=== PATIENT | male | born 1965 | race African-American/Black ===

== ENCOUNTER 2019-09-06 10:13 | Emergency (ER) | payer SELFPAY ==
[2019-09-06] MEDS ORDERED: KETOROLAC TROMETHAMINE INJ/PF 30 MG/1 ML SDV IM ONE (10:29)
[2019-09-06] MEDS ORDERED: DEXAMETHASONE SOD PHOS INJ 10 MG/1 ML VIAL IM ONE (10:29)
--- NOTE | 2019-09-06 10:32 | ER Document Report ---
ED Medical Screen (RME) - General Chief Complaint: Facial Swelling Stated Complaint: FACIAL SWELLING Time Seen by Provider: 09/06/19 10:28 Mode of Arrival: Ambulatory Information source: Patient Notes: 53-year-old male presents to ED for complaint of facial swelling to the left side of his face. He states he started with dental pain on Monday and his face started swelling yesterday and got much worse by today. He states ibuprofen upsets his stomach so he does not like ibuprofen he is not allergic to it. He states he has no medical history. He states he does smoke cigars. States he drinks about 4 beers a day smokes marijuana. I have greeted and performed a rapid initial assessment of this patient. A comprehensive ED assessment and evaluation of the patient, analysis of test results and completion of medical decision making process will be conducted by an additional ED providers. - Related Data Allergies/Adverse Reactions: ibuprofen Adverse Reaction (Verified 09/06/19 10:26) Past Medical History - Social History Frequency of alcohol use: Social Drug Abuse: None Pulmonary Medical History: Reports: Hx Tuberculosis - LATENT, ON MED 6 MONTHS. Renal/ Medical History: Reports: Hx Kidney Stones GI Medical History: Reports: Hx Hiatal Hernia Past Surgical History: Reports: Hx Abdominal Surgery - hernia, Hx Herniorrhaphy, Hx Orthopedic Surgery - broken hand - Immunizations Hx Diphtheria, Pertussis, Tetanus Vaccination: Yes Physical Exam - Vital signs Vitals: Temp Pulse Resp BP Pulse Ox 98.3 F 99 20 142/97 H 97 09/06/19 10:17 09/06/19 10:17 09/06/19 10:17 09/06/19 10:17 09/06/19 10:17 Course - Vital Signs Vital signs: Temp Pulse Resp BP Pulse Ox 98.3 F 99 20 142/97 H 97 09/06/19 10:17 09/06/19 10:17 09/06/19 10:17 09/06/19 10:17 09/06/19 10:17
[2019-09-06 11:54] LABS: ABSOLUTE BASOPHILS # (AUTO) 0.1 10^3/uL (0.0-0.2); ABSOLUTE EOSINOPHILS # (AUTO) 0.1 10^3/uL (0.0-0.6); ABSOLUTE LYMPHOCYTES (AUTO) 1.5 10^3/uL (0.5-4.7); ABSOLUTE MONOCYTES (AUTO) 1.1 10^3/uL (0.1-1.4); ABSOLUTE NEUT (AUTO) 11.8 10^3/uL (1.7-8.2); BASOPHILS % (AUTO) 0.6 % (0-2); HEMATOCRIT 45.4 % (37.9-51.0); HEMOGLOBIN 15.3 g/dL (13.5-17.0); MEAN CORPUSCULAR HEMOGLOBIN 32.2 pg (27.0-33.4); MEAN CORPUSCULAR HGB CONC 33.7 g/dL (32.0-36.0); MEAN CORPUSCULAR VOLUME 95 fl (80-97); MONOCYTES % (AUTO) 7.6 % (3-13); PLATELET COUNT 207 10^3/uL (150-450); RED BLOOD COUNT 4.75 10^6/uL (4.35-5.55); RED CELL DISTRIBUTION WIDTH 13.3 % (11.5-14.0); SEGMENTED NEUTROPHILS % (AUTO) 80.8 % (42-78); TOTAL CELLS COUNTED % (AUTO) 100 %; WHITE BLOOD COUNT 14.6 10^3/uL (4.0-10.5)
[2019-09-06 12:09] LABS: ALBUMIN 4.2 g/dL (3.5-5.0); ALKALINE PHOSPHATASE 85 U/L (38-126); ANION GAP 6 (5-19); ASPARTATE AMINO TRANSFERASE 22 U/L (17-59); BILIRUBIN,DIRECT 0.1 mg/dL (0.0-0.4); BILIRUBIN,TOTAL 0.7 mg/dL (0.2-1.3); BLOOD UREA NITROGEN 11 mg/dL (7-20); CALCIUM 9.8 mg/dL (8.4-10.2); CARBON DIOXIDE 26 mmol/L (22-30); CHLORIDE 108 mmol/L (98-107); GLUCOSE 89 mg/dL (75-110); POTASSIUM 4.3 mmol/L (3.6-5.0); TOTAL PROTEIN 7.1 g/dL (6.3-8.2)
[2019-09-06] MEDS ORDERED: CLINDAMYCIN 900 MG/D5W RTU 900 MG/50 ML RTUPB IV ONE (13:23)
--- NOTE | 2019-09-06 13:23 | ER Document Report ---
ED General - General Chief Complaint: Facial Swelling Stated Complaint: FACIAL SWELLING Time Seen by Provider: 09/06/19 10:28 Primary Care Provider: [facility] [Provider Group] - Follow up in 1 week Mode of Arrival: Ambulatory - [facility] Notes: 53-year-old male to the emergency department with complaints of left-sided facial swelling that has been getting worse for the past 2 days. He states that he first noticed some heat and face pressure about 3 days ago. He states he awoke yesterday with some mild facial swelling and then today he awoke with more. Denies any drooling, fevers, chills, neck pain, headache, chest pain, shortness of breath, abdominal pain, nausea, vomiting, diarrhea. He smokes. He has not seen a dentist in a long time. - Related Data Allergies/Adverse Reactions: ibuprofen Adverse Reaction (Verified 09/06/19 10:26) Past Medical History - General Information source: Patient - Social History Smoking Status: Current Every Day Smoker Frequency of alcohol use: Social Drug Abuse: None Family History: Reviewed & Not Pertinent Patient has suicidal ideation: No Patient has homicidal ideation: No Pulmonary Medical History: Reports: Hx Asthma, Hx Tuberculosis - LATENT, ON MED 6 MONTHS. Renal/ Medical History: Reports: Hx Kidney Stones GI Medical History: Reports: Hx Hiatal Hernia Past Surgical History: Reports: Hx Abdominal Surgery - hernia, Hx Herniorrhaphy, Hx Orthopedic Surgery - broken hand - Immunizations Hx Diphtheria, Pertussis, Tetanus Vaccination: Yes Review of Systems - Review of Systems Constitutional: denies: Chills, Fever EENT: See HPI, Dental problem, Other - left sided facial swelling Cardiovascular: denies: Chest pain, Dyspnea, Syncope, Dizziness, Lightheaded Respiratory: denies: Cough, Short of breath Gastrointestinal: denies: Abdominal pain, Diarrhea, Nausea, Vomiting Musculoskeletal: No symptoms reported Skin: No symptoms reported Neurological/Psychological: No symptoms reported -: Yes All other systems reviewed and negative Physical Exam - Vital signs Vitals: Temp Pulse Resp BP Pulse Ox 98.3 F 99 20 142/97 H 97 09/06/19 10:17 09/06/19 10:17 09/06/19 10:17 09/06/19 10:17 09/06/19 10:17 Interpretation: Hypertensive - General General appearance: Appears well, Alert - HEENT Head: Normocephalic, Atraumatic Eyes: Normal Pupils: PERRL Ears: Normal External canal: Normal Tympanic membrane: Normal Sinus: Maxillary - there is TTP over the left maxillary region with noted edema Nasal: Normal Mouth/Lips: Normal, Caries, Other - there is TTP to the left upper gum with no chanda fluctuant abscess appreciated. There are multiple dental caries and several teeth missing. Poor dentition. no Awais's angina, no drooling, uvula is midline. Airway is grossly patent. Pharynx: Normal. No: Exudate, Peritonsillar abscess, Post nasal drainage, Retropharyngeal abscess, Tonsillar hypertrophy, Uvular edema, Potential airway comprom. Neck: Normal, Supple. No: Lymphadenopathy, Meningismus - Respiratory Respiratory status: No respiratory distress Chest status: Nontender Breath sounds: Normal. No: Rales, Rhonchi, Stridor, Wheezing Chest palpation: Normal - Cardiovascular Rhythm: Regular Heart sounds: Normal auscultation Murmur: No - Abdominal Inspection: Normal Distension: No distension Bowel sounds: Normal Tenderness: Nontender Organomegaly: No organomegaly - Back Back: Normal, Nontender - Neurological Neuro grossly intact: Yes Cognition: Normal Orientation: AAOx4 [place] Coma Scale Eye Opening: Spontaneous [place] Coma Scale Verbal: Oriented [place] Coma Scale Motor: Obeys Commands Silke Coma Scale Total: 15 Speech: Normal Motor strength normal: LUE, RUE, LLE, RLE Sensory: Normal - Psychological Associated symptoms: Normal affect, Normal mood - Skin Skin Temperature: Warm Skin Moisture: Dry Skin Color: Normal Course - Re-evaluation Re-evalutation: 09/06/[address] 09/06/19 13:23 IMPRESSION: Diffuse left-sided facial edema. No focal abscess. Bilateral maxillary sinus mucosal thickening left greater than right. Impression: Dental caries, left-sided facial edema. Noted CT reading with no focal abscess and no suggestion for cellulitis. Patient states that he feels well. Did give him a low dose of IV Clinda here. He also received Toradol and Decadron. He states that he feels better. Still think is prudent to cover patient with antibiotics for possible evolving dental infection since he does complain of dental pain. This could also be allergic in nature. There is no lip or tongue involvement. There is no evidence for angioedema. We will send home with a Medrol Dosepak as well. Have encouraged the patient to return if any worsening symptoms in particular if any lip swelling, tongue swelling, difficulty breathing or any other concerns. Patient agrees with the plan. Will give information for follow-up with a dentist. - Vital Signs Vital signs: Temp Pulse Resp BP Pulse Ox 98.3 F 73 16 125/82 97 09/06/19 15:33 09/06/19 15:33 09/06/19 15:33 09/06/19 15:33 09/06/19 15:33 - Laboratory Result Diagrams: 09/06/19 11:28 09/06/19 11:28 Laboratory results interpreted by me: 09/06/19 09/06/19 11:28 11:28 WBC 14.6 H Lymph % (Auto) 10.0 L Absolute Neuts (auto) 11.8 H Seg Neutrophils % 80.8 H Chloride 108 H - Diagnostic Test Radiology reviewed: Image reviewed, Reports reviewed Discharge - Discharge Clinical Impression: Facial edema, Dental caries Condition: Stable Disposition: HOME, SELF-CARE Instructions: Dentist Additional Instructions: FOLLOW UP WITH DENTIST. RETURN IF WORSENING SWELLING SUCH LIP OR TONGUE SWELLING. COMPLETE ALL ANTIBIOTICS AND STEROIDS. Prescriptions: Clindamycin HCl 300 mg PO TID #30 capsule Methylprednisolone [Medrol Dosepack (4 mg/Tab) 21 Tab/Dosepak] 4 mg PO ASDIR PRN #21 tab.[id number] PRN Reason: Acetaminophen with Codeine [Tylenol #3 Tablet] 1 each PO Q6H PRN #6 tablet PRN Reason: Referrals: [facility] [Provider Group] - Follow up in 1 week
--- NOTE | 2019-09-06 14:29 | RADIOLOGY REPORT (SQ) ---
EXAM DESCRIPTION: CT FACIAL AREA WITH COMPLETED DATE/TIME: 09/06/2019 2:17 pm REASON FOR STUDY: left sided facial swelling COMPARISON: None. TECHNIQUE: Post contrast images through the facial bones and orbits windowed for bone and soft tissu e. Additional coronal and sagittal reconstructed images reviewed. All images stored on PACS. All CT scanners at this facility use dose modulation, iterative reconstruction, and/or weight based d osing when appropriate to reduce radiation dose to as low as reasonably achievable (ALARA). [facility]: Dose Right [facility]: CareDose [facility]: Dose Right [facility]: Teradose 4D [facility]: WhoJam CONTRAST TYPE AND DOSE: contrast/concentration: Isovue 350.00 mg/ml; Total Contrast Delivered: 75.0 ml; Total Saline Delivered: 55.0 ml RENAL FUNCTION: BUN 11, creatinine 0.94 RADIATION DOSE: CT Rad equipment meets quality standard of care and radiation dose reduction techniq ues were employed. CTDIvol: 30.4 mGy. DLP: 648 mGy-cm. . LIMITATIONS: None. FINDINGS: FACIAL BONES: No fracture or bone lesion. ORBITS: Intact. No fracture. Symmetric intact globes and retroorbital soft tissues. PARANASAL SINUSES: There is mucosal thickening in both maxillary sinuses left greater than right. No nasal polyps. Maxillary sinus outlets are patent. SOFT TISSUES: Diffuse left-sided facial edema. No focal abscess or fluid collection. INFERIOR BRAIN: Limited view. No acute findings. OTHER: No other significant finding. IMPRESSION: Diffuse left-sided facial edema. No focal abscess. Bilateral maxillary sinus mucosal t hickening left greater than right. TECHNICAL DOCUMENTATION: JOB ID: [id number] Quality ID # [id number]: Final reports with documentation of one or more dose reduction techniques (e.g., Au tomated exposure control, adjustment of the mA and/or kV according to patient size, use of iterative reconstruction technique) 2010 [employer]- All Rights Reserved Reading location - IP/workstation name: [email or web address]
[2019-09-06 15:35] VITALS: BP 125/82
== END 2019-09-06 16:26 | disposition home or self-care (01) ==
LOC: ER 10:13
DX: K02.9 Dental caries, unspecified (principal); R60.0 Localized edema; R51 Headache; F17.200 Nicotine dependence, unspecified, uncomplicated
CPT/HCPCS: 36415; 85025; 80053; 70487; J3490; J1885; J1100; 96372; 96374; 99284